=== PATIENT | female | born 1990 | race Caucasian/White ===

== ENCOUNTER 2021-02-06 16:41 | Emergency (ER) | payer OTHER ==
[~2021-02-06] VITALS: Ht 160 cm; Wt 97.1 kg
[2021-02-06 16:48] VITALS: Ht 160 cm; Wt 97.1 kg
[2021-02-06] MEDS ORDERED: IBU600 M2 PO (18:16)
[2021-02-06 18:35] VITALS: BP 128/74
== END 2021-02-06 18:32 | disposition home or self-care (01) ==
LOC: ED 16:41
DX: S01.01XA Laceration without foreign body of scalp, initial encounter (principal); W22.8XXA Striking against or struck by other objects, initial encounter; Y93.89 Activity, other specified; Y92.89 Other specified places as the place of occurrence of the external cause; Y99.8 Other external cause status
CPT/HCPCS: 90715